=== PATIENT | female | born 1955 | race Caucasian/White ===

== ENCOUNTER 2019-08-01 10:16 | Day surgery (SDC) | payer OTHER ==
[2019-07-24 15:09] VITALS: BMI 25.0
[2019-08-01] MEDS ORDERED: BUPIVACAINE HCL/PF 2.5 MG/ML - 30 ML VIAL IJ ONE (11:54)
[2019-08-01] MEDS ORDERED: methylPREDNISolone ACET (DEPO) 40 MG/1 ML VIAL ONE ×2 (11:54→14:25)
[2019-08-01] MEDS ORDERED: ONDANSETRON 4 MG/2 ML VIAL IVPUSH PRN (12:27)
[2019-08-01] MEDS ORDERED: oxyCODONE HCL 5 MG TABLET PO PRN (12:27)
[2019-08-01] MEDS ORDERED: CLINDAMYCIN PHOSPHATE 600 MG/4 ML VIAL ONE (12:52)
[2019-08-01] MEDS ORDERED: PROPOFOL 20 ML ONE (12:52)
[2019-08-01] MEDS ORDERED: MIDAZOLAM HCL 2 MG/2 ML SINGLE DOSE VIAL ONE (12:52)
[2019-08-01] MEDS ORDERED: LIDOCAINE HCL/PF 2% SDV 5ML VIAL ONE (13:48)
--- NOTE | 2019-08-01 14:29 | PN ---
Progress Note (short form) - Note Progress Note: 63F s/p right knee arthroscopy POD #0. -Pain control. -WBAT RLE. -Post-op analgesic meds ordered for delivery. -f/u post-op trial of void. -Diet as tolerated. -Keep dressing clean & dry; d/c on Sunday & place waterproof Band-Aids over incision sites. -Cane vs crutches. -f/u [facility] [place] office 7-10 days; call for appointment; . Marlon Dickens MD (Orthopaedic Surgery).
--- NOTE | 2019-08-01 14:31 | OP ---
Operative Note - Note: Operative Date: 08/01/19 Pre-Operative Diagnosis: Right knee medial meniscus derangement Operation: Surgical arthroscopy right knee. 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
[2019-08-01] MEDS ORDERED: ACETAMINOPHEN INJECTION 100 ML IVPB ONE (15:05)
[2019-08-01] MEDS ORDERED: ACETAMINOPHEN 1000 MG/100 ML VIAL (NON FORMULARY) IVPB ONE ×2 (15:05→15:49)
[2019-08-01] MEDS ORDERED: ONDANSETRON 4 MG/2 ML VIAL ONE (15:09)
[2019-08-01 15:30] VITALS: TEMP 97.7
[2019-08-01] MEDS ORDERED: oxyCODONE HCL 5 MG TABLET ONE (17:06)
[2019-08-01 17:54] VITALS: BP 110/68; PULSE 71
--- NOTE | 2019-08-01 19:51 | OP ---
Date of Operation: 08/01/2019 Surgeon: Marlon Dickens MD Pre-Operative Diagnosis: Internal derangement right knee medial meniscus Post-Operative Diagnosis: Right knee: 1. Multiple loose bodies and chondral flecks 2. 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 Surgical arthroscopy with right knee with lavage and removal of loose bodies. (31502) 2. Intra-articular (large joint) injection with 5cc 0.25% Marcaine and 1cc depomedrol (40mg/mL). (68418) Anesthesia: General, LMA. Position: Supine. Incision: Standard anterolateral knee arthroscopy portal. Tourniquet Pressure: 350mmHg. Tourniquet Time: 15 minutes. Estimated Blood Loss: 5cc. Intravenous Fluid: 600cc crystalloid. Specimens: None. Drains: None. Complications: None. Urine output: None. Bacteriology: None. Transfusions: None. Closure: 3-0 Nylon. Indications: The patient was indicated for a surgical arthroscopy of the right knee with debridement to facilitate improved motion and mobilization, and to prevent complications associated with a sedentary lifestyle. The patient was identified in the holding area by her armband. A long discussion was held with the patient regarding the risks, benefits and alternatives of the above-named procedure. Risks include but are not limited to: pain, bleeding, infection, damage to surrounding structures (including nerves, blood vessels, skin, ligaments, tendons and bone), wound complications, need for further surgery, blood clots, myocardial infarction, pulmonary embolism, anesthesia complications, compartment syndrome, limb loss, limp, loss of function, and . Benefits as mentioned above. Alternatives include no surgery. All questions were answered. The patient and her family understood and agreed to the procedure. Informed consent was obtained, witnessed and verified. The patients correct operative limb - the right lower extremity - was marked, and the patient was taken to the operating room after being seen by the anesthesia and nursing staff. Procedure: The patient was brought into the operating room, placed on the OR table and secured with a safety strap. Consent and the operative site were again verified with the patient and nursing and anesthesia staff. Anesthesia was then administered without complication. 2g IV Ancef were administered. A time out was done led by me, the attending surgeon. The patient was positioned with bony prominences well padded, and a tourniquet was placed proximally on the right thigh and set to 250mmHg. The operative limb was prepped in standard sterile fashion using betadine prep & scrub, wiped off with alcohol, and then DuraPrep applied. The operative limb was then free draped. Time out was again done, the limb was exsanguinated using an Esmarch, the tourniquet was inflated, and the case began. Surface anatomy of the knee was drawn, marking the patella, patellar tendon, and medial & lateral joint lines. With the knee flexed to 45 degrees, a standard anterolateral arthroscopy portal was made using an 11 blade. A blunt trocar was then inserted into the knee at the same angle as the incision. The blunt trocar was then slipped into the suprapatellar pouch as the knee was slowly extended. The trocar was removed through its overlying canula, and the arthroscope was inserted in its place. The fluid inflow, which had already been primed, was then attached to the canula along with the outflow suction tubing. The knee was then insufflated with normal saline solution. The suprapatellar pouch was then inspected with evidence of diffuse synovitis. Numerous loose bodies were immediately seen. The retro-patellar surfaces and medial femoral condyle revealed grade 4 chondromalacia. The ACL appeared intact. The patellofemoral articulation appeared congruous. The knee was irrigated with 2-3L of normal saline solution. All fluid was suctioned out of the knee. An intra-articular injection consisting of 5mL of 0.25% Marcaine with 1mL of Depo-Medrol (40 mg/mL) was injected into the knee. Hemostasis was assured, and the incision was closed primarily using 3-0 nylon suture. Xeroform and a sterile, compressive dressing was applied. The tourniquet was released at a final time of 15 minutes. The sponge and needle counts were correct at the end of the case and I the attending was present and scrubbed throughout the case. The patient was then transferred to the recovery room in stable condition, as per the anesthesiology team, having tolerated the procedure well. Intra-operative photographs were captured using the arthroscope at numerous steps throughout the case. MD DARIAN Sen/[id number] RICK
[2019-08-02] MEDS ORDERED: ENALAPRIL MALEATE 5 MG TABLET (FP) PO SCH (10:00)
[2019-08-02] MEDS ORDERED: ALLOPURINOL 100 MG TABLET (FP) PO SCH (10:00)
[2019-08-02] MEDS ORDERED: LISINOPRIL 10 MG TABLET (FP) PO SCH (10:00)
== END 2019-08-01 18:08 | disposition home or self-care (01) ==
LOC: FASU 10:16
PROVIDERS: ATTEND Orthopaedic Surgery Orthopaedic Surgery of the Spine
PROC: 3E0U33Z Introduction of Anti-inflammatory into Joints, Percutaneous Approach (ICD-10-PCS; 2019-08-01)
PROC: 0SCC4ZZ Extirpation of Matter from Right Knee Joint, Percutaneous Endoscopic Approach (ICD-10-PCS; principal; 2019-08-01 14:18)
DX: M23.41 Loose body in knee, right knee (principal); M22.41 Chondromalacia patellae, right knee; I10 Essential (primary) hypertension
CPT/HCPCS: 94760; J0131